=== PATIENT | female | born 1965 | race Caucasian/White ===

== ENCOUNTER → 2017-08-25 | Outpatient (CLI) | payer OTHER ==
[~2017-08-25] MED LIST: LEVOTHYROXINE0.05 M2 PO; ZYRTEC10 M2 PO
[2017-08-27 08:49] LABS: Thyroid Peroxidase (TPO) Ab 12 IU/mL (0-34)
[2017-08-27 12:40] LABS: Thyroglobulin Antibody <1.0 IU/mL (0.0-0.9)
== END ==
LOC: LAB 16:44
PROVIDERS: Otolaryngology
DX: E03.9 Hypothyroidism, unspecified (principal)